=== PATIENT | female | born 1955 | race Caucasian/White ===

== ENCOUNTER 2021-11-04 16:38 | Emergency (ER) | payer OTHER ==
--- OUTSIDE RECORDS SUMMARY | 2021-11-04 16:40 | XMS REPORT | Continuity of Care Document ---
:[address] [facility] t Address [address] [place] [address] [address]. [address] [place] [address] Care Team Providers Name Role Phone Gris Meyers MD Attending Clinician Gris MEYERS Attending Clinician Unavailable Doctor Unassigned, Name Attending Clinician Unavailable Mayco HANNAH Attending Clinician MAYCO Attending Clinician Unavailable Payers Payer Name Policy Type Policy Number Effective Date Expiration Date S ource Problems Condition Condition Condition Status Onset Resolution Last Treating Co mments Source Name Details Category Date Date Treatment Clinician Date No known No known Disease Unive rs active active ity of problems problems [facility] Allergies, Adverse Reactions, Alerts Allergy Allergy Status Severity Reaction(s) Onset Inactive Treating Comm ents Source Name Type Date Date Clinician NO KNOWN Drug Active Univers ALLERGIE Class ity of S [facility] Social History Social Habit Start Date Stop Date Quantity Comments Source Exposure to Not sure [facility] SARS-CoV-2 (event) Medica l Branch Tobacco use and 2020-09-02 2020-09-02 Never used [facility] exposure 00:00:00 00:00:00 [facility] Sex Ass[birth year] [facility] 00:00:00 00:00:00 [facility] Smoking Status Start Date Stop Date Source Never smoker [facility] Unknown if ever smoked [facility] Medications Ordered Filled Start Stop Current Ordering Indication Dosage Frequency Signature Comments Components Source Medication Medication Date Date Medication? Clinician (SIG) Name Name ondansetron Yes [id number] 4mg Take 1 Univers 4 mg 3-07 [id number] tablet by ity of disintegrat 00:00: mouth [place] ing tablet 00 every 4 Medica l (four) Branch hours as needed for Nausea and Vomiting (N/V). ondansetron Yes [id number] 4mg Take 1 Univers 4 mg 3-07 [id number] tablet by ity of disintegrat 00:00: mouth [place] ing tablet 00 every 4 Medica l (four) Branch hours as needed for Nausea and Vomiting (N/V). ondansetron Yes [id number] 4mg Take 1 Univers 4 mg 3-07 [id number] tablet by ity of disintegrat 00:00: mouth [place] ing tablet 00 every 4 Medica l (four) Branch hours as needed for Nausea and Vomiting (N/V). ondansetron Yes [id number] 4mg Take 1 Univers 4 mg 3-07 [id number] tablet by ity of disintegrat 00:00: mouth [place] ing tablet 00 every 4 Medica l (four) Branch hours as needed for Nausea and Vomiting (N/V). ondansetron Yes [id number] 4mg Take 1 Univers 4 mg 3-07 [id number] tablet by ity of disintegrat 00:00: mouth [place] ing tablet 00 every 4 Medica l (four) Branch hours as needed for Nausea and Vomiting (N/V). ondansetron Yes [id number] 4mg Take 1 Univers 4 mg 3-07 [id number] tablet by ity of disintegrat 00:00: mouth [place] ing tablet 00 every 4 Medica l (four) Branch hours as needed for Nausea and Vomiting (N/V). ondansetron Yes [id number] 4mg Take 1 Univers 4 mg 3-07 [id number] tablet by ity of disintegrat 00:00: mouth [place] ing tablet 00 every 4 Medica l (four) Branch hours as needed for Nausea and Vomiting (N/V). ondansetron Yes [id number] 4mg Take 1 Univers 4 mg 3-07 [id number] tablet by ity of disintegrat 00:00: mouth [place] ing tablet 00 every 4 Medica l (four) Branch hours as needed for Nausea and Vomiting (N/V). HYDROcodone 2020- No 4647 1{tbl} Take 1 U nivers -acetaminop 3-07 03-15 tablet by it y of hen 5-325 00:00: 04:59 mouth [place] mg tablet 00 :00 every 4 Medical (four) Branch hours as needed for Pain (scale 4-6) for up to 7 days. Indication s: acute pain Vital Signs Vital Name Observation Time Observation Value Comments Source Systolic blood 2020-09-30 20:23:00 115 mm[Hg] Univer sity of [facility] Diastolic blood 2020-09-30 20:23:00 76 mm[Hg] [facility] Heart rate 2020-09-30 20:23:00 61 /min Universi ty of [facility] Body weight 2020-09-30 20:23:00 55.339 kg Universi ty of [facility] BMI 2020-09-30 20:23:00 19.69 kg/m2 Universi ty [facility] Systolic blood 2020-09-02 18:36:00 120 mm[Hg] Univer sity [facility] Diastolic blood 2020-09-02 18:36:00 72 mm[Hg] [facility] 2020-09-02 18:36:00 74 /min Universi ty [facility] Body height 2020-09-02 18:36:00 167.6 cm Universi ty [facility] Body weight 2020-09-02 18:36:00 55.339 kg Universi ty of [facility] BMI 2020-09-02 18:36:00 19.69 kg/m2 Universi ty of [facility] Diastolic blood 2020-08-25 16:00:00 77 mm[Hg] [facility] rate 2020-08-25 16:00:00 63 /min Universi ty [facility] Respiratory rate 2020-08-25 16:00:00 18 /min Univ [facility] Oxygen saturation in 2020-08-25 16:00:00 97 /min [facility] Arterial blood by [facility] Pulse oximetry Branch Systolic blood 2020-08-25 16:00:00 118 mm[Hg] Univer sit of [facility] Body temperature 2020-08-25 15:44:00 36.5 La [facility] height 2020-08-25 15:44:00 165.1 cm Universi ty [facility] Body weight 2020-08-25 15:44:00 54.885 kg [facility] BMI 2020-08-25 15:44:00 20.14 kg/m2 [facility] Procedures Procedure Date / Time Performed Performing Clinician [facility] e EXTERNAL PROVIDER 2020-09-12 05:01:00 Doctor Serafin, Rubina Univ [facility] RECORDS Name Medical Branch XR LUMBAR SPINE 2 VW 2020-08-25 16:12:24 Chester Segovia [facility] ity [facility] XR FEMUR 2 VW LEFT 2020-08-25 16:12:24 [facility] XR SHOULDER 2+ VW 2020-08-25 16:12:24 Chester Segovia [facility] LEFT [facility] Branch Encounters Start End Encounter Admission Attending Care Care Encounter Source Date/Time Date/Time Type Type Clinicians Facility Department ID 2020-09-30 2020-09-30 [facility] [id number] Univers 14:20:24 23:59:00 Encounter jV Landry [facility] [id number] ity of Surgical [id number] Brayan as Specialti [id number] Nj dical es 809 [facility] 2020-09-30 2020-09-30 [facility] [id number] Univers 14:02:13 16:05:12 Visit Vj Urena [id number] it y of Surgical [id number] Brayan as Specialti [id number] Me dical es 198 [facility] 2020-09-30 2020-09-30 [facility] [id number] Univers 14:00:00 14:00:00 VJ [id number] ity [facility] 2020-09-30 2020-09-30 [facility] [id number] Univers 14:00:00 14:00:[address] [facility] 2020-09-12 2020-09-12 Orders Doctor CANNON [id number] Univers 00:00:00 00:00:00 Only Unassigned, GUILLERMO [id number] ity of [facility] [id number] Brayan as [id number] [facility] 009 Branch 2020-09-02 2020-09-02 [facility] [id number] Univers 13:48:48 23:59:00 Encounter Vj Urena [id number] ity of Surgical [id number] Brayan as Specialti [id number] Nj dical es 809 [facility] 2020-09-02 2020-09-02 [facility] [id number] Univers 13:28:03 14:02:45 Visit Vj Landry [facility] [id number] it y of Surgical [id number] Brayan as Specialti [id number] Nj dical es 198 [facility] 2020-09-02 2020-09-02 [facility] [id number] Univers 13:45:00 13:45:00 VJ newsome [facility] 2020-08-25 2020-08-25 Emergency [facility] [id number] Univers 09:41:00 11:07:00 Chester John [id number] i ty [id number] [id number] [facility] 084 [place] 2020-08-25 2020-08-25 [facility] [id number] Univers 09:41:00 09:41:00 CHESTER newsome [facility] Results This patient has no known results.
--- NOTE | 2021-11-04 18:06 | RAD REPORT ---
EXAM DESCRIPTION: RAD - Chest Single View - 11/04/2021 5:30 pm CLINICAL HISTORY: CHEST PAIN Chest pain. COMPARISON: No comparisons FINDINGS: Portable technique limits examination quality. The lungs are emphysematous with small calcified granuloma in the left apex. No focal infiltrate is s een. . The heart is upper limit of normal in size. No displaced fractures. IMPRESSION: No acute intrathoracic process suspected.
[2021-11-04 18:11] LABS: Urine Blood Trace-lysed (Negative); Urine Glucose Negative (Negative); Urine Protein Negative (Negative)
[2021-11-04 18:15] LABS: Absolute Lymphocytes (CBC) 0.9 K/uL (0.7-4.9); Lymphocytes % 10.3 % (15.3-44.8); MPV 8.1 fL (7.6-11.3); RBC Red Blood Cell Count 4.47 M/uL (3.86-4.86)
[2021-11-04 18:17] LABS: Protime INR 1.05
[2021-11-04 18:33] LABS: Albumin 3.6 g/dL (3.4-5.0); Bilirubin Direct 0.2 mg/dL (0-0.2); Bilirubin Total 0.8 mg/dL (0.2-1.0); Magnesium 2.3 mg/dL (1.8-2.4); Potassium 4.1 mmol/L (3.5-5.1); Protein, Total 7.8 g/dL (6.4-8.2); Troponin High Sensitivity 6.5 pg/mL (<58.9)
--- NOTE | 2021-11-04 19:14 | RAD REPORT ---
EXAM DESCRIPTION: - CP - 11/04/2021 6:23 pm CLINICAL HISTORY: DIZZINESS Headache, drowsiness COMPARISON: Head C Spine Mpr Wo Con dated 07/10/2016 TECHNIQUE: Real-time sonographic evaluation of both carotid systems was performed. Doppler interroga tion was performed with waveform tracing bilaterally. FINDINGS: Normal high resistance waveforms are noted in both external carotid arteries. The common c arotid arteries and internal carotid arteries show normal low resistance waveforms. No significant plaque formation is seen. Peak systolic and end diastolic velocity values and the ICA/ CCA ratios are in the non-hemodynamically significant range. Antegrade flow seen in both vertebral arteries. IMPRESSION: No significant atherosclerotic changes noted. No evidence of a hemodynamically significant stenosis.
--- NOTE | 2021-11-04 19:27 | RAD REPORT ---
EXAM DESCRIPTION: CT - Soft Tissue Neck W/Contr CLINICAL HISTORY: chest and neck pain Neck pain COMPARISON: Head C Spine Mpr Wo Con dated 07/10/2016; Angio Aorta For Dissection dated 11/04/[address] scans are performed using dose optimization technique as appropriate and may includ e automated exposure control or mA/KV adjustment according to patient size. FINDINGS: Nasopharyngeal tissues are normal in appearance. Fossa Rosenmller are normal. Parapharyngeal fat triangles are symmetric. Tongue base structures are normal. Epiglottis and aryepiglottic folds are normal. Piriform sinuses are well aerated. The vocal cords are normal in appearance. Salivary glands are normal in appearance. Upper lung plunkett are clear. Included intracranial contents are unremarkable. IMPRESSION: No acute or pathologic process is identified.
--- NOTE | 2021-11-04 19:32 | RAD REPORT ---
EXAM DESCRIPTION: CT - Angio Aorta For Dissection - 11/04/2021 7:17 pm CLINICAL HISTORY: Chest pain radiating to the back. pe/dissection COMPARISON: No comparisons TECHNIQUE: CT angiography of the aorta was performed with MIPs. All CT scans are performed using dose optimization technique as appropriate and may include automated exposure control or mA/KV adjustment according to patient size. FINDINGS: A left aortic arch is present with normal branching pattern of the great vessels.No acute aortic finding is seen such as aneurysm, penetrating ulcer or dissection. The celiac axis, SMA, GERRY and renal arteries are patent. No evidence of pulmonary embolism. The lungs are mildly emphysematous with subsegmental atelectasis in both lung bases. The liver demonstrates no focal mass or biliary dilatation.The spleen, pancreas, adrenal glands and k idneys are within normal limits for arterial phase imaging. No bowel obstruction, free fluid or abscess.Moderate stool is present throughout the colon. Normal ap pendix.No pathologic enlarged lymphadenopathy identified. Mild lumbosacral degenerative changes. IMPRESSION: No acute aortic finding is demonstrated. No evidence of pulmonary thromboembolism.
--- NOTE | 2021-11-04 19:38 | EDPHYS ---
Physician Documentation [facility] Name: Steph Amaro Age: 66 yrs Sex: Female : 1955 Arrival Date: 11/04/2021 Time: 16:39 Bed 8 Private MD: Gabby Newton C ED Physician Coy Marquez HPI: 11/04 17:58 This 66 yrs old Female presents to ER via Ambulatory with complaints of Chest hugo Pain - sent by dr newton r/o pe. 17:58 The patient or guardian reports chest pain that is located primarily in the anterior [facility] chest wall, bilaterally. 17:59 The patient or guardian complains of pain, that is acute. The symptoms are located on hugo the chin, right jaw and left jaw. Onset: The symptoms/episode began/occurred 2 day(s) ago. Context: The problem was sustained at an unknown location. Onset: 2 day(s) ago. The pain radiates to The pain radiates to the chin, right jaw and left jaw. Modifying factors: The symptoms are alleviated by remaining still, the symptoms are aggravated by movement. Severity of symptoms: At their worst the symptoms were moderate, in the emergency department the symptoms are unchanged. Historical: - Allergies: 17:17 amoxicillin; ww - PMHx: 17:17 None; ww - PSHx: 17:17 Tonsillectomy; ww - Immunization history:: Adult Immunizations up to date. - Social history:: Smoking status: Patient denies any tobacco usage or history of. - Family history:: not pertinent. ROS: 17:59 Constitutional: Negative for fever, chills, and weight loss, Eyes: Negative for injury, hugo pain, redness, and discharge, ENT: Negative for injury, pain, and discharge, Respiratory: Negative for shortness of breath, cough, wheezing, and pleuritic chest pain, Abdomen/GI: Negative for abdominal pain, nausea, vomiting, diarrhea, and constipation, Back: Negative for injury and pain, : Negative for injury, bleeding, discharge, and swelling, MS/Extremity: Negative for injury and deformity, Skin: Negative for injury, rash, and discoloration, Neuro: Negative for headache, weakness, numbness, tingling, and seizure, Psych: Negative for depression, anxiety, suicide ideation, homicidal ideation, and hallucinations, Allergy/Immunology: Negative for hives, rash, and allergies, Endocrine: Negative for neck swelling, polydipsia, polyuria, polyphagia, and marked weight changes. 17:59 Neck: Positive for pain at rest. 17:59 Cardiovascular: Positive for chest pain, of the right supraclavicular area, right clavicle, left supraclavicular area and left clavicle. Exam: 17:59 Constitutional: This is a well developed, well nourished patient who is awake, alert, hugo and in no acute distress. Head/Face: Normocephalic, atraumatic. Eyes: Pupils equal round and reactive to light, extra-ocular motions intact. Lids and lashes normal. Conjunctiva and sclera are non-icteric and not injected. Cornea within normal limits. Periorbital areas with no swelling, redness, or edema. ENT: Nares patent. No nasal discharge, no septal abnormalities noted. Tympanic membranes are normal and external auditory canals are clear. Oropharynx with no redness, swelling, or masses, exudates, or evidence of obstruction, uvula midline. Mucous membranes moist. Neck: Trachea midline, no thyromegaly or masses palpated, and no cervical lymphadenopathy. Supple, full range of motion without nuchal rigidity, or vertebral point tenderness. No Meningismus. Chest/axilla: Normal chest wall appearance and motion. Nontender with no deformity. No lesions are appreciated. Cardiovascular: Regular rate and rhythm with a normal S1 and S2. No gallops, murmurs, or rubs. Normal PMI, no JVD. No pulse deficits. Respiratory: Lungs have equal breath sounds bilaterally, clear to auscultation and percussion. No rales, rhonchi or wheezes noted. No increased work of breathing, no retractions or nasal flaring. Abdomen/GI: Soft, non-tender, with normal bowel sounds. No distension or tympany. No guarding or rebound. No evidence of tenderness throughout. Back: No spinal tenderness. No costovertebral tenderness. Full range of motion. Skin: Warm, dry with normal turgor. Normal color with no rashes, no lesions, and no evidence of cellulitis. MS/ Extremity: Pulses equal, no cyanosis. Neurovascular intact. Full, normal range of motion. Neuro: Awake and alert, GCS 15, oriented to person, place, time, and situation. Cranial nerves II-XII grossly intact. Motor strength 5/5 in all extremities. Sensory grossly intact. Cerebellar exam normal. Normal gait. Psych: Awake, alert, with orientation to person, place and time. Behavior, mood, and affect are within normal limits. 17:59 Musculoskeletal/extremity: DVT Exam: No signs of deep vein thrombosis. no pain, no swelling, no tenderness, negative Homans' sign noted on exam, no appreciated bluish discoloration, no erythema, no increased warmth. 19:33 ECG was reviewed by the Attending Physician. [facility] Vital Signs: 17:16 BP 107 / 76; Pulse 85; Resp 18; Temp 98.5; Pulse Ox 100% ; Weight 58.97 kg; Height 5 ww ft. 5 in. (165.10 cm); 19:02 BP 112 / 71; Pulse 77; Resp 16; Pulse Ox 99% ; ll1 19:25 BP 135 / 71; Pulse 78; Resp 29 S; Pulse Ox 98% on R/A; as6 17:16 Body Mass Index 21.63 (58.97 kg, 165.10 cm) ww MDM: 17:01 Patient medically screened. hugo 18:02 Differential diagnosis: abnormal EKG, acute myocardial infarction, acute pericarditis, hugo chest wall pain, cholecystitis. HEART Score: History: Slightly Suspicious (0), ECG: Normal (0), Age: > 45 and < 65 years (1), Risk Factors: No Risk Factors Known (0), Troponin: < or = 1 x Normal Limit (0), Total Score = 1. The patient was not given aspirin in the Emergency Department. Not indicated due to patient's past medical history. The patient's deep vein thrombosis risk score was calculated as follows: Total Score: 0. This patient was found to be at low risk for a deep vein thrombosis by using the Well's assessment criteria. The patient's pulmonary embolism risk score was calculated as follows: Total Score: 0-2 points. This patient was found to be at low risk for a pulmonary embolism by using the Well's assessment criteria. SYLVIE Risk Score: TOTAL SCORE = 0. Data reviewed: vital signs, nurses notes, lab test result(s), EKG, radiologic studies, CT scan, doppler, plain films. 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 Test interpretation: by ED physician or midlevel provider: ECG, plain radiologic studies. 11/04 17:05 Order name: Basic Metabolic Panel; Complete Time: 19:04 [facility] 11/04 17:05 Order name: CBC with Diff; Complete Time: 19:04 [facility] 11/04 17:05 Order name: LFT's; Complete Time: 19:04 [facility] 11/04 17:05 Order name: Magnesium; Complete Time: 19:04 [facility] 11/04 17:05 Order name: NT PRO-BNP; Complete Time: 19:04 [facility] 11/04 17:05 Order name: PT-INR; Complete Time: 19:04 [facility] 11/04 17:05 Order name: Troponin HS; Complete Time: 19:04 [facility] 11/04 17:05 Order name: XRAY Chest (1 view); Complete Time: 19:04 [facility] 11/04 17:05 Order name: CT Soft Tissue Neck W/contr; Complete Time: 19:30 [facility] 11/04 17:05 Order name: US Carotid Artery Bilateral; Complete Time: 19:30 [facility] 11/04 17:05 Order name: CT Aorta for Dissection: pe/dissection; Complete Time: 19:35 [facility] 11/04 17:05 Order name: Lipase; Complete Time: 19:04 [facility] 11/04 18:11 Order name: Urine Dipstick-Ancillary; Complete Time: 19:04 EDMS 11/04 17:05 Order name: EKG; Complete Time: 17:06 [facility] 11/04 17:05 Order name: Cardiac monitoring; Complete Time: 18:12 [facility] 11/04 17:05 Order name: EKG - Nurse/Tech; Complete Time: 18:12 [facility] 11/04 17:05 Order name: IV Saline Lock; Complete Time: 17:13 [facility] 11/04 17:05 Order name: Labs collected and sent; Complete Time: 17:13 [facility] 11/04 17:05 Order name: O2 Per Protocol; Complete Time: 17:13 [facility] 11/04 17:05 Order name: O2 Sat Monitoring; Complete Time: 17:13 [facility] 11/04 17:05 Order name: Urine Dipstick-Ancillary (obtain specimen); Complete Time: 17:36 hugo EC:33 Rate is 72 beats/min. Rhythm is regular. QRS [place] is Normal. PA interval is normal. QRS hugo interval is normal. QT interval is normal. No Q waves. T waves are Normal. No ST changes noted. Clinical impression: NSR w/ Non-specific ST/T Changes and No evidence of ischemia. Interpreted by me. Reviewed by me. Administered Medications: 18:02 Drug: NS 0.9% 1000 ml Route: IV; Rate: 1 bolus; Site: right antecubital; ll1 20:14 Follow up: Response: No adverse reaction; IV Status: Completed infusion; IV Intake: as6 1000ml 20:09 Drug: Ketorolac 15 mg Route: IVP; Site: right antecubital; as6 20:14 Follow up: Response: No adverse reaction as6 20:09 Drug: Pepcid (famotidine) 20 mg Route: IVP; Site: right antecubital; as6 20:14 Follow up: Response: No adverse reaction as6 Disposition Summary: 11/04/21 19:38 Discharge Ordered Location: Home hugo Problem: new hugo Symptoms: have improved hugo Condition: Stable hugo Diagnosis - Chest pain on breathing hugo Followup: hugo - With: Gabby Newton MD - When: 2 - 3 days - Reason: Recheck today's complaints, Continuance of care, Re-evaluation by your physician Discharge Instructions: - Discharge Summary Sheet hugo - Nonspecific Chest Pain, Adult hugo - Chest Wall Pain hugo - Costochondritis hugo - Chest Wall Pain, [id number] hugo Forms: - Medication Reconciliation Form hugo - Thank You Letter hugo - Antibiotic Education hugo - Prescription Opioid Use hugo Prescriptions: - Pepcid 20 mg Oral Tablet - take 1 tablet by ORAL route every 12 hours for 15 days; 30 tablet; Refills: 0, hugo Product Selection Permitted - Motrin IB 200 mg Oral Tablet - take 2 tablet by ORAL route every 12 hours As needed as needed with food; 30 hugo tablet; Refills: 0, Product Selection Permitted Signatures: Dispatcher [employer] Coy Haq MD MD cha Lewis, Lynsay, RN RN ll1 Kapil Diego RN RN as6 Estella Haq RN RN ww Corrections: (The following items were deleted from the chart) 17:17 17:17 Allergies: No Known Allergies; ww ww
--- NOTE | 2021-11-04 19:38 | ER ---
Nurse's Notes [facility] Name: Steph Amaro Age: 66 yrs Sex: Female : 1955 Arrival Date: 11/04/2021 Time: 16:39 Bed 8 Private MD: Gabby Ramsay C Diagnosis: Chest pain on breathing Presentation: 11/04 17:16 Chief complaint: Patient states: Upper chest back of throat pain that started this ww weekend. Dr. Ramsay sent over to rule out pneumo or PE. Coronavirus screen: Client denies travel out of the [place] in the last 14 days. Ebola Screen: Patient denies travel to an Ebola-affected area in the 21 days before illness onset. Initial Sepsis Screen: Does the patient meet any 2 criteria? No. Patient's initial sepsis screen is negative. Does the patient have a suspected source of infection? No. Patient's initial sepsis screen is negative. Risk Assessment: Do you want to hurt yourself or someone else? Patient reports no desire to harm self or others. Onset of symptoms is unknown. 17:16 Method Of Arrival: Ambulatory 17:16 Acuity: FABIAN 3 ww Historical: - Allergies: 17:17 amoxicillin; ww - PMHx: 17:17 None; ww - PSHx: 17:17 Tonsillectomy; ww - Immunization history:: Adult Immunizations up to date. - Social history:: Smoking status: Patient denies any tobacco usage or history of. - Family history:: not pertinent. Screenin:19 Abuse screen: Denies threats or abuse. Denies injuries from another. Nutritional ph screening: No deficits noted. Tuberculosis screening: No symptoms or risk factors identified. Fall Risk None identified. Assessment: 17:13 Reassessment: Did not want to start work-up without speaking to Dr. Marquez first. Dr. andrez Marqeuz notified. Call light within reach. 17:45 Reassessment: Patient still didn't want to start work-up yet. ll1 18:00 General: Appears in no apparent distress. Behavior is calm, cooperative, appropriate ll1 for age. Pain: Complains of pain in chest Pain radiates to throat area Pain began 1 day ago. Neuro: No deficits noted. Cardiovascular: Reports chest pain, shortness of breath. 19:00 Reassessment: No changes from previously documented assessment. Patient and/or family ll1 updated on plan of care and expected duration. Pain level reassessed. Patient is alert, oriented x 3, equal unlabored respirations, skin warm/dry/pink. 19:25 Reassessment: Patient appears in no apparent distress at this time. Patient and/or as6 family updated on plan of care and expected duration. Pain level reassessed. Patient is alert, oriented x 3, equal unlabored respirations, skin warm/dry/pink. Vital Signs: 17:16 BP 107 / 76; Pulse 85; Resp 18; Temp 98.5; Pulse Ox 100% ; Weight 58.97 kg; Height 5 ww ft. 5 in. (165.10 cm); 19:02 BP 112 / 71; Pulse 77; Resp 16; Pulse Ox 99% ; ll1 19:25 BP 135 / 71; Pulse 78; Resp 29 S; Pulse Ox 98% on R/A; as6 17:16 Body Mass Index 21.63 (58.97 kg, 165.10 cm) ED Course: 16:39 Patient arrived in ED. as 16:39 Gabby Ramsay MD is Private Physician. as 17:00 Coy Marquez MD is Attending Physician. [facility] 17:12 Tana Munoz, СЕРГЕЙ is Primary Nurse. ll1 17:12 Arm band placed on Patient placed in an exam room, on a stretcher. ll1 17:17 Triage completed. ww 17:19 Patient has correct armband on for positive identification. Placed in gown. Bed in low ph position. Call light in reach. Side rails up X 1. Client placed on continuous cardiac and pulse oximetry monitoring. NIBP monitoring applied. Door closed. Noise minimized. Warm blanket given. 17:32 XRAY Chest (1 view) In Process Unspecified. EDMS 17:54 No provider procedures requiring assistance completed. Patient maintains SpO2 ll1 saturation greater than 95% on room air. 17:55 Inserted saline lock: 20 gauge in left antecubital area, using aseptic technique. Blood ll1 collected. 18:25 US Carotid Artery Bilateral In Process Unspecified. EDMS 19:11 Primary Nurse role handed off by Tana Munoz, СЕРГЕЙ mw2 19:19 Kapil Diego, СЕРГЕЙ is Primary Nurse. as6 19:19 CT Soft Tissue Neck W/contr In Process Unspecified. EDMS 19:19 CT Aorta for Dissection: pe/dissection In Process Unspecified. EDMS 19:37 Gabby Ramsay MD is Referral Physician. hugo 20:15 IV discontinued, intact, bleeding controlled, No redness/swelling at site. Pressure as6 dressing applied. Administered Medications: 18:02 Drug: NS 0.9% 1000 ml Route: IV; Rate: 1 bolus; Site: right antecubital; ll1 20:14 Follow up: Response: No adverse reaction; IV Status: Completed infusion; IV Intake: as6 1000ml 20:09 Drug: Ketorolac 15 mg Route: IVP; Site: right antecubital; as6 20:14 Follow up: Response: No adverse reaction as6 20:09 Drug: Pepcid (famotidine) 20 mg Route: IVP; Site: right antecubital; as6 20:14 Follow up: Response: No adverse reaction as6 Medication: 17:20 VIS not applicable for this client. ph Intake: 20:14 IV: 1000ml; Total: 1000ml. as6 Outcome: 19:38 Discharge ordered by MD. hugo 20:14 Discharged to home ambulatory, with family. as6 20:14 Condition: stable 20:14 Discharge instructions given to patient, family, Instructed on discharge instructions, follow up and referral plans. medication usage, Demonstrated understanding of instructions, follow-up care, medications, Prescriptions given X 2. 20:15 Patient left the ED. as6 Signatures: Dispatcher [employer] EDID Coy Marquez MD MD cha Martinez, Amelia as Michelle Brown, СЕРГЕЙ RN Arcenio Dimas mw2 Tana Munoz RN RN ll1 Kapil Diego RN RN as6 Estella Haq, СЕРГЕЙ RN ww Corrections: (The following items were deleted from the chart) 17:17 17:17 Allergies: No Known Allergies; rigo sierra
[2021-11-04] MEDS ORDERED: FAMOTIDINE 20 MG/2 ML VIAL IV ONE (20:12)
[2021-11-04] MEDS ORDERED: KETOROLAC 30 MG/ML INJ ONE (20:12)
[2021-11-04 20:28] VITALS: TEMP 98.5
[2021-11-04 20:31] VITALS: BP 135/71; O2SAT 98
--- NOTE | 2021-11-06 07:43 | EKG ---
Test Date: 2021-11-04 Test Time: 18:42:15 Money Laundering Investigator: LARISA MEASUREMENT RESULTS: Intervals: Rate: 72 SD: 164 QRSD: 78 QT: 392 QTc: 429 [place]: P: 53 SD: 164 QRS: -32 T: 58 INTERPRETIVE STATEMENTS: Normal sinus rhythm Left axis deviation Abnormal ECG Compared to ECG 11/03/2007 12:29:49 Left-axis deviation now present Sinus bradycardia no longer present Electronically Signed On 11-06-21 07:37:41 CDT by Ga Uribe
== END 2021-11-04 20:15 | disposition home or self-care (01) ==
LOC: ER 16:38
DX: R07.1 Chest pain on breathing (principal); Z88.1 Allergy status to other antibiotic agents
CPT/HCPCS: 93005; 85025; 80048; 36415; 83735; 85610; 80076; 81003; 84484; 83690; 83880; 70491; 71275; 74175; 71045; 93880; Q9967; J3490; 96361; 96374; 96375; 99284